=== PATIENT | female | born 1940 | race Caucasian/White ===

== ENCOUNTER 2017-01-12 15:18 | Inpatient (IN) | payer OTHER, MEDICARE ==
[~2017-01-12] VITALS: Ht 160 cm; Wt 94.0 kg
[~2017-01-12 15:18] MED LIST: ADVAIR 250/501 DISK IH; ADVAIR IH; ALLERGY MEDICIN25 M2 PO; AMITRIPTYLINE H50 MG PO; AMOX TR-K CLV1 EAC4 PO; APPEAREX2500 MCG PO; APRESOLINE20 MG/ML IM; ASCORBIC ACID500 M3 PO; ATROVENT 00.5 MG/2.5 AEROSOL; ATROVENT 00.5 MG/2.5 IH; ATROVENT H200 INHALA IH; ATROVENT HFA12.9 GM IH; Ascorbic Acid,Ester- PO; B-100 COMPLEX100 MG PO; BACTRIM,SEPT1 TABLET PO; BENICAR20 MG PO; BENTYL10 MG PO; BIOTENE ORALBAL42 GM MM; BIOTIN; CAL-MAG TABLET1 EACH PO; CALCIUM-MAGNES1 EA11 PO; CALCIUM-MAGNES1 EAC9 PO; CARAFATE1 GM PO; CHLORASEPTIC177 ML MM; CHONDR; COZAAR100 MG PO; CRESTOR10 MG PO; CYANOCOBALAMI100 MCG PO; CYMBALTA60 MG PO; Cymbalta PO; DICYCLOMINE HCL20 MG PO; DULOXETINE HCL60 MG PO; ELAVIL50 MG PO; ELIQUIS5 MG PO; EMS NITROSTAT0.4 M1 SL; EMS Nitrostat 0.4 mg SL; Elavil PO; FENTANYL1 EAC4 TD; FISH OIL 1,0001 EAC7 PO; FISH OIL 1,2001 EAC1 PO; FISH OIL 1200 MG PO; FISH OIL CONC1000 M1 PO; FLEXERIL10 MG PO; FLUTICASONE IH; FUROSEMIDE20 MG PO; FUROSEMIDE40 MG PO; Flexeril PO; GLUCOPHAGE1000 MG PO; GLUCOSAMINE; GLUCOSAMINE &1 EAC1; GLUCOSAMINE &1 EAC1 PO; GLUCOSAMINE &1 EACH PO; GNP CALCIUM PO; GUAIFENESIN WI120 M1 PO; Glucophage PO; HALDOL0.5 MG PO; HYDROCHLOROTH12.5 M3 PO; HYDROCHLOROTHIA25 MG PO; IRON325 M1 PO; KEFLEX500 MG PO; LASIX20 MG PO; LEVEMIR FL100 UNIT/1 SC; LEVEMIR FL100 UNITS/ PO; LEVEMIR FL100 UNITS/ SC; LEVEMIR100 UNIT/2 SC; LOPID600 MG PO; LOPRESSOR25 MG PO; LOPRESSOR50 MG PO; LORATADINE10 M2 PO; Lopid PO; MACROBID100 MG PO; MAG-OX400 M1 PO; MAGNESIUM400 M1 PO; MAGOX 400400 MG PO; MAGOX PO; MECLIZINE HCL25 MG PO; METFORMIN HCL500 MG PO; METOCLOPRAMIDE10 MG PO; METOPROLOL TART50 MG PO; MICROZIDE12.5 M1 PO; MULTAQ400 MG PO; MYCOSTATIN15 GM PO; Metoprolol Tartrate PO; NASONEX17 GM BOTH NARES; NASONEX17 GM NS; NEOMYCIN-POLYMY10 M1 LEFT EAR; NITROSTAT0.4 MG SL; NOVOLOG 10100 UNITS/ SC; NOVOLOG PE100 UNITS/ SC; NOVOLOG100 UNIT/3 SQ; NUCYNTA100 MG PO; PANTOPRAZOLE SO40 MG PO; PLAVIX75 MG PO; PLETAL50 MG PO; PRAVASTATIN SOD80 MG PO; PREDNISONE5 MG PO; PROMETHAZINE HC25 M1 PO; PROTONIX40 MG PO; PROVENTIL,2.5 MG/3 M IH; PYRIDOXINE,VIT100 MG PO; Preparation H PR; SORE THROAT LO1 EAC3 MM; THERAGRAN1 TABLET PO; TIZANIDINE HCL2 M1 PO; TRAMADOL HCL50 MG PO; TRICOR145 MG PO; TYLENOL 8 HOUR650 MG PO; TYLENOL EXTRA500 MG PO; TYLENOL REGULA325 MG PO; TYLENOL WITH C1 EACH PO; TYLENOL/CODE1 TABLE1 PO; ULTRAM50 MG PO; VALISONE 0.1%15 GM TP; VALSARTAN-HCTZ1 EAC2 PO; VALSARTAN-HCTZ1 EACH PO; VITAMIN A A1 CAPSULE PO; VITAMIN A PO; VITAMIN B-1250 MC3 PO; VITAMIN B-6100 MG PO; VITAMIN B-6250 MG PO; VITAMIN B12 100MCG PO; VITAMIN C500 M1 PO; VITAMIN D31000 UNIT PO; VITAMIN E400 UNIT PO; VITAMIN-E400 INTUNI PO; Vitamin B-12 PO; Vitamin B-6 PO; Vitamin-E PO; XOPENEX0.63 MG/3 IH; XOPENEX1.25 MG/0. AEROSOL; ZANTAC300 MG PO; ZOFRAN4 MG PO; ZOFRAN4 MG/2 ML IV; [UNRECOGNIZED DRUG - OTHER] PO; [UNRECOGNIZED DRUG - OTHER] PO
[2017-01-12 16:48] LABS: HEMATOCRIT 41.4 % (36.0-46.0); MCH 28.4 PG (29.0-34.0); MCHC 30.7 G/DL (30.0-36.0); MCV 92.6 FL (83-99); MEAN PLAT.VOLUME 9.2 uM^3 (9.5-12.4); PLATELET COUNT 316 K/uL (156-360); RBC DIS.WIDTH-CV 16.1 % (11.8-14.6); RBC DIS.WIDTH-SD 54.4 % (39-53); RED BLOOD COUNT 4.47 M/uL (3.80-5.20); WHITE BLOOD COUNT 10.7 K/uL (4.1-10.2)
[2017-01-12 17:04] LABS: CHLORIDE 107 mEq/L (99-109); POTASSIUM 4.6 mEq/L (3.7-5.4); SODIUM 143 mEq/L (136-147)
[2017-01-12 17:05] LABS: GLUCOSE 113 mg/dL (70-99)
[2017-01-12 17:07] LABS: ANION GAP 10 MEQ/L (2-14)
[2017-01-12 17:09] LABS: GFR ESTIMATE (CALCULATED) 46 mL/min/
[2017-01-12 17:10] LABS: UREA NITROGEN (BUN) 27 mg/dL (9-23)
[2017-01-12 17:12] LABS: TROP-I INTERPRETATION NEGATIVE; TROPONIN-I 0.02 ng/mL (0.0-0.30)
[2017-01-12 19:17] LABS: D-DIMER ELISA 1.33 mg/L FEU (< 0.57)
[2017-01-12] MEDS ORDERED: FUROSEMIDE40 MG PO (21:12)
[2017-01-12] MEDS ORDERED: K-DUR20 MEQ PO (21:12)
[2017-01-12] MEDS ORDERED: AZITHROMYCIN250 MG1 PO (21:13)
[2017-01-12] MEDS ORDERED: ZYRTEC10 M3 PO (21:14)
[2017-01-12] MEDS ORDERED: METHYLPREDNISOLO4 M1 PO (21:14)
[2017-01-12] MEDS ORDERED: GLUCOSAMINE &1 EACH PO (21:16)
[2017-01-12] MEDS ORDERED: VITAMIN C500 M1 PO (21:17)
[2017-01-12] MEDS ORDERED: FISH OIL 1,001000 M1 PO (21:18)
[2017-01-12] MEDS ORDERED: CALCIUM MAGNES1 EACH PO (21:19)
[2017-01-12] MEDS ORDERED: CYMBALTA60 MG PO (21:20)
[2017-01-12] MEDS ORDERED: MULTAQ400 MG PO (21:22)
[2017-01-12] MEDS ORDERED: PRAVACHOL20 MG PO (21:23)
[2017-01-12] MEDS ORDERED: PROTONIX40 MG PO (21:25)
[2017-01-12] MEDS ORDERED: LOPRESSOR25 MG PO (21:27)
[2017-01-12] MEDS ORDERED: DICYCLOMINE HCL20 MG PO (21:28)
[2017-01-12] MEDS ORDERED: ELAVIL25 MG PO (21:29)
[2017-01-12] MEDS ORDERED: SALINE NASAL14.1 GM TP (21:33)
[2017-01-12] MEDS ORDERED: MILK OF MAGN PO (21:37)
[2017-01-12] MEDS ORDERED: FLEET ENEMA-AD118 ML PR (21:37)
[2017-01-12] MEDS ORDERED: DULCOLAX10 MG PR (21:37)
[2017-01-12] MEDS ORDERED: VITAMIN D31000 UNIT PO (21:39)
[2017-01-12] MEDS ORDERED: LEVEMIR FL100 UNIT/1 SC (21:39)
[2017-01-12] MEDS ORDERED: PREPARATION H C51 G1 PR (21:41)
[2017-01-12] MEDS ORDERED: BENGAY ULTRA S1 EACH TP (21:45)
[2017-01-12 22:03] LABS: INTER. NORMALIZED RATIO 1.1; PROTHROMBIN TIME 11.7 (9.2-11.2); PTT 29.3 (25-32)
[2017-01-13] VITALS (7 sets, daily range): BP systolic 124–195; BP diastolic 78–108
[2017-01-13 06:27] LABS: INTER. NORMALIZED RATIO 1.2; PROTHROMBIN TIME 12.6 (9.2-11.2)
[2017-01-13 06:28] LABS: PTT 145.9 (25-32)
[2017-01-13 07:12] LABS: BASOPHIL COUNT 0.1 K/uL (0-0.1); EOSINOPHIL (%) 1.6 % (0-5); EOSINOPHIL COUNT 0.2 K/uL (0-0.3); HEMATOCRIT 38.9 % (36.0-46.0); IMMATURE GRANULOCYTE (%) 0.4 % (0.0-0.7); INSTRUMENT ABS NEUTROPHIL CT 6.9 K/uL; LYMPHOCYTE COUNT 1.9 K/uL (1.0-2.8); MCH 28.9 PG (29.0-34.0); MCHC 31.1 G/DL (30.0-36.0); MCV 92.8 FL (83-99); MEAN PLAT.VOLUME 9.3 uM^3 (9.5-12.4); MONOCYTE (%) 9.1 % (3-12); MONOCYTE COUNT 0.9 K/uL (0-0.8); NEUTROPHIL (%) 69.7 % (45-76); NEUTROPHIL COUNT 6.9 K/uL (1.8-6.4); PLATELET COUNT 307 K/uL (156-360); RBC DIS.WIDTH-CV 16.1 % (11.8-14.6); RBC DIS.WIDTH-SD 54.4 % (39-53); RED BLOOD COUNT 4.19 M/uL (3.80-5.20); WHITE BLOOD COUNT 9.9 K/uL (4.1-10.2)
[2017-01-13 07:19] LABS: POINT-OF-CARE METER ID UU14162508
[2017-01-13 07:36] LABS: ANION GAP 9 MEQ/L (2-14); CHLORIDE 103 MEQ/L (99-109); POTASSIUM 4.5 MEQ/L (3.7-5.4); SAMPLE HEMOLYSIS CHECK 0; SAMPLE ICTERIC CHECK 0; SAMPLE LIPEMIA CHECK 0; SODIUM 140 MEQ/L (136-147)
[2017-01-13 07:41] LABS: GFR ESTIMATE (CALCULATED) 51 mL/min/; GLUCOSE 246 mg/dL (70-99); UREA NITROGEN (BUN) 29 mg/dL (9-23)
[2017-01-13 11:50] LABS: POINT-OF-CARE METER ID UU14162508
[2017-01-13 16:18] LABS: POINT-OF-CARE METER ID UU14162508
[2017-01-13 20:32] LABS: INTER. NORMALIZED RATIO 1.2; PTT 66.1 (25-32)
[2017-01-13 21:29] LABS: POINT-OF-CARE METER ID UU14162508
[2017-01-14 01:06] VITALS: BP 130/74
[2017-01-14 03:26] LABS: EOSINOPHIL (%) 0 % (0-5); HEMATOCRIT 37.6 % (36.0-46.0); IMMATURE GRANULOCYTE (%) 0.6 % (0.0-0.7); IMMATURE GRANULOCYTE COUNT 0.1 K/uL; INSTRUMENT ABS NEUTROPHIL CT 7.1 K/uL; LYMPHOCYTE COUNT 0.7 K/uL (1.0-2.8); MCH 28.6 PG (29.0-34.0); MCHC 31.4 G/DL (30.0-36.0); MCV 91.3 FL (83-99); MEAN PLAT.VOLUME 9.6 uM^3 (9.5-12.4); MONOCYTE (%) 3.6 % (3-12); MONOCYTE COUNT 0.3 K/uL (0-0.8); NEUTROPHIL (%) 86.6 % (45-76); NEUTROPHIL COUNT 7.1 K/uL (1.8-6.4); PLATELET COUNT 298 K/uL (156-360); RBC DIS.WIDTH-CV 15.9 % (11.8-14.6); RBC DIS.WIDTH-SD 53.1 % (39-53); RED BLOOD COUNT 4.12 M/uL (3.80-5.20); WHITE BLOOD COUNT 8.1 K/uL (4.1-10.2)
[2017-01-14 03:38] LABS: CHLORIDE 100 mEq/L (99-109); POTASSIUM 4.6 mEq/L (3.7-5.4); SODIUM 137 mEq/L (136-147)
[2017-01-14 03:40] LABS: GLUCOSE 306 mg/dL (70-99)
[2017-01-14 03:41] LABS: ANION GAP 10 MEQ/L (2-14)
[2017-01-14 03:44] LABS: GFR ESTIMATE (CALCULATED) 39 mL/min/
[2017-01-14 03:45] LABS: UREA NITROGEN (BUN) 40 mg/dL (9-23)
[2017-01-14 04:51] VITALS: BP 158/84
[2017-01-14 06:46] LABS: POINT-OF-CARE METER ID UU14162508
[2017-01-14 07:20] VITALS: BP 172/97
[2017-01-14 11:28] LABS: POINT-OF-CARE METER ID UU14162508
[2017-01-14 13:23] VITALS: BP 165/81
[2017-01-14 15:42] VITALS: BP 162/74
[2017-01-14 16:31] LABS: INTER. NORMALIZED RATIO 1.2; PROTHROMBIN TIME 11.9 (9.2-11.2)
[2017-01-14 16:40] LABS: POINT-OF-CARE METER ID UU14162508
[2017-01-14 20:45] VITALS: BP 114/67
[2017-01-14 21:32] LABS: POINT-OF-CARE METER ID UU14162508
[2017-01-14 23:10] LABS: INTER. NORMALIZED RATIO 1.2; PROTHROMBIN TIME 12.1 (9.2-11.2)
[2017-01-15] VITALS: BP 133/66
[2017-01-15 04:23] VITALS: BP 142/68
[2017-01-15 06:07] LABS: HEMATOCRIT 37.4 % (36.0-46.0); MCH 28.9 PG (29.0-34.0); MCHC 31.8 G/DL (30.0-36.0); MCV 90.8 FL (83-99); MEAN PLAT.VOLUME 9.8 uM^3 (9.5-12.4); PLATELET COUNT 314 K/uL (156-360); RBC DIS.WIDTH-CV 15.9 % (11.8-14.6); RBC DIS.WIDTH-SD 52.6 % (39-53); RED BLOOD COUNT 4.12 M/uL (3.80-5.20); WHITE BLOOD COUNT 12.4 K/uL (4.1-10.2)
[2017-01-15 08:36] VITALS: BP 155/97
[2017-01-15 11:02] VITALS: BP 139/69
[2017-01-15 16:39] VITALS: BP 153/70
[2017-01-15 20:57] VITALS: BP 119/68
[2017-01-16 00:31] VITALS: BP 129/81
[2017-01-16 04:27] VITALS: BP 134/91
[2017-01-16 06:02] LABS: EOSINOPHIL (%) 0.3 % (0-5); IMMATURE GRANULOCYTE (%) 0.4 % (0.0-0.7); IMMATURE GRANULOCYTE COUNT 0.1 K/uL; INSTRUMENT ABS NEUTROPHIL CT 7.3 K/uL; MCH 28.6 PG (29.0-34.0); MCHC 31.6 G/DL (30.0-36.0); MCV 90.7 FL (83-99); MEAN PLAT.VOLUME 9.4 uM^3 (9.5-12.4); MONOCYTE (%) 11.3 % (3-12); MONOCYTE COUNT 1.3 K/uL (0-0.8); NEUTROPHIL (%) 62.2 % (45-76); NEUTROPHIL COUNT 7.3 K/uL (1.8-6.4); PLATELET COUNT 300 K/uL (156-360); RBC DIS.WIDTH-CV 15.6 % (11.8-14.6); RBC DIS.WIDTH-SD 52.2 % (39-53); RED BLOOD COUNT 4.19 M/uL (3.80-5.20); WHITE BLOOD COUNT 11.8 K/uL (4.1-10.2)
[2017-01-16 06:33] LABS: ANION GAP 8 MEQ/L (2-14); CHLORIDE 101 MEQ/L (99-109); GFR ESTIMATE (CALCULATED) 36 mL/min/; GLUCOSE 163 mg/dL (70-99); POTASSIUM 4.3 MEQ/L (3.7-5.4); SAMPLE HEMOLYSIS CHECK 0; SAMPLE ICTERIC CHECK 0; SAMPLE LIPEMIA CHECK 0; SODIUM 139 MEQ/L (136-147); UREA NITROGEN (BUN) 49 mg/dL (9-23)
[2017-01-16 06:50] VITALS: BP 160/76
[2017-01-16 16:05] VITALS: BP 133/70
[2017-01-16] MEDS ORDERED: ELIQUIS5 MG PO ×2 (16:44→16:45)
[2017-01-16] MEDS ORDERED: VITAMIN C500 M1 PO (16:48)
[2017-01-16] MEDS ORDERED: METOPROLOL SUCC50 MG PO (16:50)
[2017-01-16] MEDS ORDERED: PREDNISONE10 M1 PO (16:51)
== END 2017-01-16 19:32 | disposition home health service (06) | DRG 175 ==
LOC: EME 15:18 → EDOF 23:41 → 2EASTP 23:41
PROVIDERS: Emergency Medicine; Family Medicine; Family Medicine Sports Medicine
PROC: 5A09457 Assistance with Respiratory Ventilation, 24-96 Consecutive Hours, Continuous Positive Airway Pressure (ICD-10-PCS; principal; 2017-01-13)
DX: I26.99 Other pulmonary embolism without acute cor pulmonale (principal); I25.10 Atherosclerotic heart disease of native coronary artery without angina pectoris; G47.33 Obstructive sleep apnea (adult) (pediatric); I48.0 Paroxysmal atrial fibrillation; I48.2 Chronic atrial fibrillation; I50.9 Heart failure, unspecified; J20.9 Acute bronchitis, unspecified; J44.0 Chronic obstructive pulmonary disease with (acute) lower respiratory infection; J44.1 Chronic obstructive pulmonary disease with (acute) exacerbation; J98.11 Atelectasis; K21.9 Gastro-esophageal reflux disease without esophagitis; K58.0 Irritable bowel syndrome with diarrhea; M19.90 Unspecified osteoarthritis, unspecified site; K55.059 Acute (reversible) ischemia of intestine, part and extent unspecified; R09.02 Hypoxemia; D63.1 Anemia in chronic kidney disease; N18.9 Chronic kidney disease, unspecified; R04.0 Epistaxis; I13.0 Hypertensive heart and chronic kidney disease with heart failure and stage 1 through stage 4 chronic kidney disease, or unspecified chronic kidney disease; I77.1 Stricture of artery; E11.22 Type 2 diabetes mellitus with diabetic chronic kidney disease; E78.5 Hyperlipidemia, unspecified; F41.1 Generalized anxiety disorder; E66.9 Obesity, unspecified; Z68.36 Body mass index [BMI] 36.0-36.9, adult; Z87.891 Personal history of nicotine dependence; Z99.81 Dependence on supplemental oxygen; I25.2 Old myocardial infarction; Z99.89 Dependence on other enabling machines and devices; Z85.3 Personal history of malignant neoplasm of breast; Z86.73 Personal history of transient ischemic attack (TIA), and cerebral infarction without residual deficits; Z87.442 Personal history of urinary calculi; Z95.5 Presence of coronary angioplasty implant and graft; Z98.62 Peripheral vascular angioplasty status
CPT/HCPCS: 71020; 71275; 80048; 82272; 82948; 83880; 84443; 84484; 85025; 85027; 85379; 85610; 85730; 93005; 93970; 93971; 94640; 94640 76; 94660; 94760; 94799; 99202; 99281; 99285; J0696; J1815; J1940; J2930; J7050; J7512

== ENCOUNTER 2017-05-12 19:35 | Observation (INO) | payer OTHER, MEDICARE ==
[~2017-05-12] VITALS: Ht 165.1 cm; Wt 100.6 kg
[~2017-05-12 19:35] MED LIST changes: +AZITHROMYCIN250 MG1 PO; +BENGAY ULTRA S1 EACH TP; +CALCIUM MAGNES1 EACH PO; +DULCOLAX10 MG PR; +ELAVIL25 MG PO; +FISH OIL 1,001000 M1 PO; +FLEET ENEMA-AD118 ML PR; +K-DUR20 MEQ PO; +METHYLPREDNISOLO4 M1 PO; +METOPROLOL SUCC50 MG PO; +MILK OF MAGN PO; +PRAVACHOL20 MG PO; +PREDNISONE10 M1 PO; +PREPARATION H C51 G1 PR; +SALINE NASAL14.1 GM TP; +ZYRTEC10 M3 PO
[2017-05-12 20:47] LABS: HEMATOCRIT 40.6 % (36.0-46.0); MCH 30.6 PG (29.0-34.0); MCHC 31.5 G/DL (30.0-36.0); MCV 97.1 FL (83-99); MEAN PLAT.VOLUME 9.6 uM^3 (9.5-12.4); PLATELET COUNT 295 K/uL (156-360); RBC DIS.WIDTH-CV 14.9 % (11.8-14.6); RBC DIS.WIDTH-SD 53.1 % (39-53); RED BLOOD COUNT 4.18 M/uL (3.80-5.20); WHITE BLOOD COUNT 8.9 K/uL (4.1-10.2)
[2017-05-12 20:57] LABS: CHLORIDE 107 mEq/L (99-109); POTASSIUM 5.5 mEq/L (3.7-5.4); SODIUM 142 mEq/L (136-147)
[2017-05-12 20:58] LABS: GLUCOSE 139 mg/dL (70-99)
[2017-05-12 21:00] LABS: ANION GAP 10 MEQ/L (2-14)
[2017-05-12 21:02] LABS: GFR ESTIMATE (CALCULATED) 57 mL/min/
[2017-05-12 21:03] LABS: UREA NITROGEN (BUN) 21 mg/dL (9-23)
[2017-05-12 21:06] LABS: TROP-I INTERPRETATION NEGATIVE; TROPONIN-I 0.02 ng/mL (0.0-0.30)
[2017-05-12 21:58] LABS: INTER. NORMALIZED RATIO 1.4; PROTHROMBIN TIME 15.5 SEC (10.2-12.9)
[2017-05-12 22:01] LABS: PTT 51.5 SEC (25-37)
[2017-05-12 22:10] LABS: TOTAL BILIRUBIN 0.5 mg/dL (0.0-1.0)
[2017-05-12 22:11] LABS: ALKALINE PHOSPHATASE 116 IU/L (3-129)
[2017-05-12 22:14] LABS: DIRECT BILIRUBIN 0.2 mg/dL (0.0-0.3)
[2017-05-12 22:15] LABS: LIPASE 10 U/L (1.0-51.0)
[2017-05-12] MEDS ORDERED: ELIQUIS5 MG PO (22:48)
[2017-05-12] MEDS ORDERED: LOPRESSOR50 MG PO (22:49)
[2017-05-12] MEDS ORDERED: ROBITUSSIN AC,T10 ML PO (22:50)
[2017-05-12] MEDS ORDERED: PRILOSEC20 MG PO (22:51)
[2017-05-12] MEDS ORDERED: NOVOLOG PE100 UNITS/ SC (22:52)
[2017-05-12] MEDS ORDERED: ASCORBIC ACID500 M3 PO (22:53)
[2017-05-12] MEDS ORDERED: ATROVENT H200 INHALA IH (22:54)
[2017-05-12] MEDS ORDERED: TRAMADOL HCL50 MG PO (22:54)
[2017-05-12] MEDS ORDERED: AMITRIPTYLINE H50 MG PO (22:54)
[2017-05-12] MEDS ORDERED: SINGULAIR10 MG PO (22:55)
[2017-05-13 01:36] VITALS: BP 175/97
[2017-05-13 03:23] VITALS: BP 121/64
[2017-05-13 06:09] LABS: TROP-I INTERPRETATION NEGATIVE; TROPONIN-I 0.02 ng/mL (0.0-0.30)
[2017-05-13 08:09] LABS: POINT-OF-CARE METER ID UU13113700
[2017-05-13 09:05] VITALS: BP 145/72
[2017-05-13 11:14] LABS: FASTING STATUS NONFASTING
[2017-05-13 11:40] LABS: HDL CHOLESTEROL 44 MG/DL (Desirable>=50); LDL CHOLESTEROL 63 mg/dL (Desirable<100); NON-HDL CHOLESTEROL 107 mg/dL (Desirable<160); TOTAL CHOLESTEROL 151 mg/dL (Desirable<200); TRIGLYCERIDES 222 MG/DL (Normal: <150)
[2017-05-13 11:45] VITALS: BP 139/72
[2017-05-13 11:58] LABS: POINT-OF-CARE METER ID UU14162513
[2017-05-13 12:09] LABS: TROP-I INTERPRETATION NEGATIVE; TROPONIN-I 0.02 ng/mL (0.0-0.30)
[2017-05-13 12:10] LABS: ANION GAP 11 MEQ/L (2-14); CHLORIDE 104 MEQ/L (99-109); GFR ESTIMATE (CALCULATED) 51 mL/min/; SAMPLE HEMOLYSIS CHECK 0; SAMPLE ICTERIC CHECK 0; SAMPLE LIPEMIA CHECK 0; SODIUM 141 MEQ/L (136-147); UREA NITROGEN (BUN) 21 mg/dL (9-23)
[2017-05-13 12:16] LABS: GLUCOSE 209 mg/dL (70-99); POTASSIUM 4.2 MEQ/L (3.7-5.4)
[2017-05-13 15:47] VITALS: BP 157/80
[2017-05-13 17:32] LABS: POINT-OF-CARE METER ID UU14162513
[2017-05-13 20:00] VITALS: BP 137/65
[2017-05-13 23:06] LABS: POINT-OF-CARE METER ID UU13113700
[2017-05-14 01:01] VITALS: BP 129/71
[2017-05-14 04:56] VITALS: BP 121/63
[2017-05-14 09:40] VITALS: BP 153/76
[2017-05-14 12:30] VITALS: BP 147/87
[2017-05-14 12:46] LABS: HEMATOCRIT 37.8 % (36.0-46.0); MCH 32.1 PG (29.0-34.0); MCHC 32.8 G/DL (30.0-36.0); MCV 97.9 FL (83-99); MEAN PLAT.VOLUME 9.7 uM^3 (9.5-12.4); PLATELET COUNT 238 K/uL (156-360); RBC DIS.WIDTH-SD 53.6 % (39-53); RED BLOOD COUNT 3.86 M/uL (3.80-5.20); WHITE BLOOD COUNT 9.2 K/uL (4.1-10.2)
[2017-05-14 12:56] LABS: POINT-OF-CARE METER ID UU13113831
[2017-05-14 13:11] LABS: ANION GAP 8 MEQ/L (2-14); CHLORIDE 102 MEQ/L (99-109); GFR ESTIMATE (CALCULATED) 57 mL/min/; GLUCOSE 207 mg/dL (70-99); POTASSIUM 4.5 MEQ/L (3.7-5.4); SAMPLE HEMOLYSIS CHECK 1; SAMPLE ICTERIC CHECK 0; SAMPLE LIPEMIA CHECK 0; SODIUM 139 MEQ/L (136-147); UREA NITROGEN (BUN) 23 mg/dL (9-23)
[2017-05-14] MEDS ORDERED: CARDIZEM30 MG PO (16:57)
[2017-05-14 17:14] VITALS: BP 154/68
== END 2017-05-14 19:37 | disposition home or self-care (01) ==
LOC: EME 19:35 → EDOF 22:39 → 5WEST 22:39 → EDOF 22:39 → ENRESERV 22:42 → 5WEST 05-13 01:21
PROVIDERS: Hospitalist; Internal Medicine; Physician Assistant Medical
DX: R07.89 Other chest pain (principal); R47.02 Dysphasia; E87.5 Hyperkalemia; I25.10 Atherosclerotic heart disease of native coronary artery without angina pectoris; E11.22 Type 2 diabetes mellitus with diabetic chronic kidney disease; I12.9 Hypertensive chronic kidney disease with stage 1 through stage 4 chronic kidney disease, or unspecified chronic kidney disease; N18.3 Chronic kidney disease, stage 3 (moderate); I48.0 Paroxysmal atrial fibrillation; K21.9 Gastro-esophageal reflux disease without esophagitis; K29.60 Other gastritis without bleeding; E78.5 Hyperlipidemia, unspecified; J44.9 Chronic obstructive pulmonary disease, unspecified; Z85.3 Personal history of malignant neoplasm of breast; I73.9 Peripheral vascular disease, unspecified; Z87.442 Personal history of urinary calculi; F41.1 Generalized anxiety disorder; F41.8 Other specified anxiety disorders; Z86.718 Personal history of other venous thrombosis and embolism; G43.909 Migraine, unspecified, not intractable, without status migrainosus; Z87.19 Personal history of other diseases of the digestive system; Z79.01 Long term (current) use of anticoagulants; Z79.4 Long term (current) use of insulin; Z86.711 Personal history of pulmonary embolism; I25.2 Old myocardial infarction; Z95.5 Presence of coronary angioplasty implant and graft; Z92.3 Personal history of irradiation; Z99.81 Dependence on supplemental oxygen; Z87.891 Personal history of nicotine dependence; K55.1 Chronic vascular disorders of intestine; K22.4 Dyskinesia of esophagus; G47.33 Obstructive sleep apnea (adult) (pediatric)
CPT/HCPCS: 71020; 71250; 80048; 80061; 80076; 82948; 83690; 83880; 84484; 85027; 85610; 85730; 93005; 94640; 94640 76; 94760; 94799; 99202; 99281; 99285; C9113; G0378; J1815; J1940; J2270

== ENCOUNTER → 2017-08-13 | Outpatient (CLI) | payer OTHER, MEDICARE ==
[~2017-08-13] MED LIST changes: +CARDIZEM30 MG PO; +PRILOSEC20 MG PO; +ROBITUSSIN AC,T10 ML PO; +SINGULAIR10 MG PO
== END | disposition home or self-care (01) ==
LOC: CT 18:11
DX: S00.03XA Contusion of scalp, initial encounter (principal); I67.89 Other cerebrovascular disease; Z79.01 Long term (current) use of anticoagulants
CPT/HCPCS: 70450

== ENCOUNTER 2017-12-06 14:43 | Emergency (ER) | payer OTHER, MEDICARE ==
[~2017-12-06] VITALS: Ht 167.6 cm; Wt 98.7 kg
[2017-12-06 15:37] LABS: BASOPHIL (%) 0.5 % (0-1); EOSINOPHIL (%) 7.7 % (0-5); EOSINOPHIL COUNT 0.6 K/uL (0-0.3); HEMATOCRIT 37.3 % (36.0-46.0); IMMATURE GRANULOCYTE (%) 0.2 % (0.0-0.7); LYMPHOCYTE (%) 22.5 % (15-42); LYMPHOCYTE COUNT 1.8 K/uL (1.0-2.8); MCH 30.1 PG (29.0-34.0); MCHC 32.2 G/DL (30.0-36.0); MCV 93.5 FL (83-99); MONOCYTE (%) 10.4 % (3-12); MONOCYTE COUNT 0.8 K/uL (0-0.8); NEUTROPHIL (%) 58.7 % (45-76); NEUTROPHIL COUNT 4.7 K/uL (1.8-6.4); PLATELET COUNT 225 K/uL (156-360); RBC DIS.WIDTH-CV 14.2 % (11.8-14.6); RBC DIS.WIDTH-SD 49.1 % (39-53); RED BLOOD COUNT 3.99 M/uL (3.80-5.20)
[2017-12-06 15:43] LABS: INTER. NORMALIZED RATIO 1.6
[2017-12-06 15:45] LABS: CHLORIDE 102 mEq/L (99-109); POTASSIUM 5.2 mEq/L (3.7-5.4); SODIUM 135 mEq/L (136-147)
[2017-12-06 15:51] LABS: CREATININE 1.2 mg/dL (0.6-1.3); GFR ESTIMATE (CALCULATED) 46 mL/min/
[2017-12-06 15:52] LABS: UREA NITROGEN (BUN) 25 mg/dL (9-23)
[2017-12-06 15:56] LABS: GLUCOSE 403 mg/dL (70-99)
[2017-12-06 16:26] LABS: C-REACTIVE PROTEIN 9.3 MG/L (0-10)
[2017-12-06 16:33] LABS: ERTH.SED.RATE 14 MM/HR (0-30)
[2017-12-06 16:37] LABS: CARBON DIOXIDE (BICARBONATE) 28.6 MEQ/L (20-31)
[2017-12-06 16:37] LABS: APPEARANCE CLEAR ((CLEAR)); BILIRUBIN NEGATIVE; BLOOD NEGATIVE; COLOR YELLOW ((YELLOW)); GLUCOSE (STRIP) >=500; KETONES NEGATIVE; LEUKOCYTES MODERATE; NITRITE NEGATIVE; PROTEIN (STRIP) 100; SPECIFIC GRAVITY 1.017 (1.000-1.030); UROBILINOGEN 0.2 MG/DL (0.2-1.0)
[2017-12-06 16:44] LABS: BACTERIA RARE /HPF; EPITHELIAL CELLS 1+ /HPF; MUCUS NONE SEEN /LPF; RED BLOOD CELLS 0-5 /HPF (0-5); UCUL ADDED? YES
[2017-12-06 16:48] LABS: ALBUMIN 3.6 g/dL (3.2-4.8)
[2017-12-06 16:51] LABS: TOTAL PROTEIN 6.3 g/dL (6.4-8.3)
[2017-12-06 16:53] LABS: TOTAL BILIRUBIN 0.4 mg/dL (0.0-1.0)
[2017-12-06 16:54] LABS: ALKALINE PHOSPHATASE 82 IU/L (3-129)
[2017-12-06 16:56] LABS: AST (GOT) 19 IU/L (2-34); DIRECT BILIRUBIN 0.2 mg/dL (0.0-0.3)
[2017-12-06 16:57] LABS: ALT (GPT) 15 IU/L (3-49); LIPASE 18 U/L (1.0-51.0)
[2017-12-06] MEDS ORDERED: FIORICET,ESG1 TABLET PO (23:02)
[2017-12-06 23:44] VITALS: BP 167/92
== END 2017-12-06 23:45 | disposition home or self-care (01) ==
LOC: EME 14:43
PROVIDERS: Emergency Medicine
DX: R51 Headache (principal); E11.65 Type 2 diabetes mellitus with hyperglycemia; Z79.4 Long term (current) use of insulin; I48.91 Unspecified atrial fibrillation; Z86.73 Personal history of transient ischemic attack (TIA), and cerebral infarction without residual deficits; I11.0 Hypertensive heart disease with heart failure; I50.9 Heart failure, unspecified; J44.9 Chronic obstructive pulmonary disease, unspecified; I25.2 Old myocardial infarction; F41.9 Anxiety disorder, unspecified; K21.9 Gastro-esophageal reflux disease without esophagitis; Z99.81 Dependence on supplemental oxygen; Z88.5 Allergy status to narcotic agent; Z87.891 Personal history of nicotine dependence; Z95.5 Presence of coronary angioplasty implant and graft; F32.9 Major depressive disorder, single episode, unspecified
CPT/HCPCS: 70450; 80048; 80076; 81003; 82010; 82803; 82948; 83605; 83690; 83930; 85025; 85610; 85651; 86140; 87086; 99281; 99285; J0780; J1200; J7120